=== PATIENT | female | born 1930 | race African-American/Black ===

== ENCOUNTER 2016-11-13 13:59 | Observation (INO) | payer OTHER ==
--- NOTE | 2016-11-13 15:26 | PDOC ---
History of Present Illness - General Chief Complaint: Syncope/Near Syncope Stated Complaint: Syncope/Near Syncope History Source: Patient Exam Limitations: No Limitations - History of Present Illness Initial Comments: 11/13/16 17:41 86 yo F with pmhx of htn, HLD here wtih c/o syncopal event. pt was at grocery store, suddenly had breif loc. fell to ground did have head trauma. loc brief. witness by bystander.no precipitating sp or sob. no f/c no urinary complaints. recently under stress due to problems with her housing. here with family. pt has not had a cardiac work up recently. has had prior syncopal episodes, last time many years ago. 11/13/16 17:43 Past History - Past Medical History Allergies/Adverse Reactions: Allergies Allergy/AdvReac Type Severity Reaction Status Date / Time Penicillins Allergy Verified 11/13/16 14:29 Home Medications: Ambulatory Orders Carvedilol [Coreg] 25 mg PO BID 11/13/16 Clopidogrel Bisulfate [Plavix -] 75 mg PO DAILY 11/13/16 Latanoprost 0.005% Eye Drops [Xalatan 0.005% Eye Drops -] 1 drop OD HS 11/13/16 Simvastatin 40 mg PO HS 11/13/16 Lisinopril [Prinivil] 5 mg PO DAILY #30 tablet 11/15/16 CVA: No (TIA) HTN: Yes Hypercholesterolemia: Yes - Suicide/Smoking/Psychosocial Hx Smoking History: Never smoked Have you smoked in the past 12 months: No Information on smoking cessation initiated: No Hx Alcohol Use: No Drug/Substance Use Hx: No Substance Use Type: None Review of Systems - Review of Systems Constitutional: No: Chills, Diaphoresis, Fever HEENTM: No: Eye Pain Respiratory: No: Cough, Orthopnea Cardiac (ROS): Yes: Syncope. No: Chest Pain, Edema : No: Burning, Dysuria, Discharge Musculoskeletal: No: Back Pain Integumentary: No: Bruising Neurological: No: Headache All Other Systems: Reviewed and Negative *Physical Exam - Vital Signs Last Vital Signs Temp Pulse Resp BP Pulse Ox 97.8 F 75 18 152/62 100 11/13/16 13:59 11/13/16 13:59 11/13/16 13:59 11/13/16 13:59 11/13/16 13:59 - Physical Exam HEENT: positive: Normal ENT Inspection, Normal Voice, Other (head atraumatic) Neck: positive: Trachea midline. negative: Tender Respiratory/Chest: positive: Lungs Clear, Normal Breath Sounds. negative: Chest Tender Cardiovascular: positive: Regular Rhythm, Regular Rate, S1, S2. negative: Edema Gastrointestinal/Abdominal: positive: Normal Bowel Sounds, Flat, Soft. negative : Tender Musculoskeletal: positive: Normal Inspection. negative: CVA Tenderness Extremity: positive: Normal Capillary Refill, Normal Inspection, Normal Range of Motion Integumentary: positive: Normal Color, Dry, Warm Neurologic: positive: mechanic II-XII NML intact, Fully Oriented, Alert, Normal Mood/ Affect, Normal Response, Motor Strength 5/5 Heart Score/ECG Review #1 General ECG Interpretation: Sinus Rhythm, Normal Rate (70), No acute ischemic changes Compared to previous ECG there are: No significant change - ECG Intrepretation Comment:: 11/13/16 17:4 2nd deg block mobitz I, TWI III only. - [place] Normal ED Treatment Course - LABORATORY CBC & Chemistry Diagram: 11/14/16 05:35 11/14/16 05:35 Medical Decision Making - Medical Decision Making 11/13/16 15:23 86 yo F with h/o tia htn afib, here withh c/o syncopal episode while at grocery store. was stressed due to recent issues of being evicted. positive brief loc while walking at store. witnessed by bystanders. no precipitating symptoms. has had similar in the past when stressed. differential : anxiety , dysrthymia, anemia dehydration, infection such as uti, plan labs ekg ua hydrating reassess. 11/13/16 17:[address] Dodson awaiting labs for admission to obs. 11/24/16 12:30 *DC/Admit/Observation/Transfer Diagnosis at time of Disposition: Chronic anticoagulation Syncope Qualifiers: Syncope type: vasovagal syncope Qualified Code(s): R55 - Syncope and collapse Head injury Qualifiers: Encounter type: initial encounter Qualified Code(s): S09.90XA - Unspecified injury of head, initial encounter - Discharge Dispostion Disposition: HOME Condition at time of disposition: Improved - Prescriptions
[2016-11-13 16:59] LABS: BASOPHIL 0.7 % (0-2.0); EOSINOPHIL 0.9 % (0-4.5); MCH 32.6 pg (25.7-33.7); MCHC 32.7 g/dl (32.0-36.0); MEAN CELL VOLUME 99.7 fl (80-96); MEAN PLT VOLUME 9.3 fl (7.5-11.1); NEUTROPHILS 59.5 % (42.8-82.8); PLATELET COUNT 178 K/MM3 (134-434); RDW 13.5 % (11.6-15.6); WHITE BLOOD COUNT 5.8 K/mm3 (4.0-10.0)
[2016-11-13 17:42] LABS: ALBUMIN 3.5 g/dl (3.4-5.0); ANION GAP 6 (8-16); BILIRUBIN,TOTAL 0.5 mg/dL (0.2-1.0); CALCIUM 8.9 mg/dL (8.5-10.1); CO2 33 mmol/L (21-32); CREATININE 0.8 mg/dL (0.55-1.02); GLUCOSE,RANDOM 101 mg/dL (74-106); SGOT/AST 17 U/L (15-37); SGPT/ALT 16 U/L (12-78); TOT PROT 7.1 g/dl (6.4-8.2)
[2016-11-13 17:44] LABS: ALK PHOS 71 U/L (45-117); CPK 66 IU/L (26-192); TROPONIN I < 0.02 ng/ml (0.00-0.05)
--- NOTE | 2016-11-13 19:56 | PN ---
Teaching Attending Note Name of Resident: Smiley Parry ATTENDING PHYSICIAN STATEMENT I saw and evaluated the patient. I reviewed the resident's note and discussed the case with the resident. I agree with the resident's findings and plan as documented. SUBJECTIVE: 86 yo F with pmhx of htn, and hld who presents after falling to the ground at the grocery store. States she has a short period of loc. Fall was witnessed by person nearby. States she was lightheaded prior to event. Denies any chest pain or pressure. Denies any shortness of breath. OBJECTIVE: Physical: VS: Vital Signs Period Temp Pulse Resp BP Sys/Herrmann Pulse Ox Last 24 Hr 97.8 F 75 18 152/62 100 GEN: NAD, Resting in bed, AA0X3, able to speak full sentences HEENT: NCAT, PERRL, Throat without erythema or exudates CARD: II, V RRR S1, S2 RESP: CTAB ABD: BSX4, NTD to palpation EXT: - C/C/E CBCD WBC 5.8 K/mm3 (4.0-10.0) 11/13/16 16:45 RBC 3.79 M/mm3 (3.60-5.2) 11/13/16 16:45 Hgb 12.4 GM/dL (10.7-15.3) 11/13/16 16:45 Hct 37.8 % (32.4-45.2) 11/13/16 16:45 MCV 99.7 fl (80-96) H 11/13/16 16:45 MCHC 32.7 g/dl (32.0-36.0) 11/13/16 16:45 RDW 13.5 % (11.6-15.6) 11/13/16 16:45 Plt Count 178 K/MM3 (134-434) 11/13/16 16:45 MPV 9.3 fl (7.5-11.1) 11/13/16 16:45 CMP Sodium 141 mmol/L (136-145) 11/13/16 16:45 Potassium 4.1 mmol/L (3.5-5.1) 11/13/16 16:45 Chloride 102 mmol/L (98-107) 11/13/16 16:45 Carbon Dioxide 33 mmol/L (21-32) H 11/13/16 16:45 Anion Gap 6 (8-16) L 11/13/16 16:45 BUN 10 mg/dL (7-18) 11/13/16 16:45 Creatinine 0.8 mg/dL (0.55-1.02) 11/13/16 16:45 Creat Clearance w eGFR > 60 (>60) 11/13/16 16:45 Random Glucose 101 mg/dL (74-106) 11/13/16 16:45 Calcium 8.9 mg/dL (8.5-10.1) 11/13/16 16:45 Total Bilirubin 0.5 mg/dL (0.2-1.0) 11/13/16 16:45 AST 17 U/L (15-37) 11/13/16 16:45 ALT 16 U/L (12-78) 11/13/16 16:45 Alkaline Phosphatase 71 U/L (45-117) 11/13/16 16:45 Total Protein 7.1 g/dl (6.4-8.2) 11/13/16 16:45 Albumin 3.5 g/dl (3.4-5.0) 11/13/16 16:45 CARDIAC ENZYMES Creatine Kinase 66 IU/L (26-192) 11/13/16 16:45 Troponin I < 0.02 ng/ml (0.00-0.05) 11/13/16 16:45 CXR:Pending UA- Pending EKG: Mobitz I CT HEAD:No acute intercranial pathology ASSESSMENT AND PLAN: 86 yo f with pmhx of htn, hld, tia, who presents with loss of conciousness at grocery store, being admitted for syncope eval. 1.) Loss of conciousness DDx: Vasovagal/cardiogenic syncope - Orthostatic VS - CXR and UA/Ucx - Echo - Carotid us - CT Head- negative for acute pathology- On Plavix if MS changes repeat CT in 12 hours - Trend Trop/EKG - Chk. Lipid panel 2.) HTN - C/W Home meds 3.) HLD - C/W home meds 4.) Dvt Ppx - Low risk - SCD Place in Obs-Tele
--- NOTE | 2016-11-13 20:12 | PDOC ---
*Physical Exam - Vital Signs Last Vital Signs Temp Pulse Resp BP Pulse Ox 97.8 F 75 18 152/62 100 11/13/16 13:59 11/13/16 13:59 11/13/16 13:59 11/13/16 13:59 11/13/16 13:59 ED Treatment Course - LABORATORY CBC & Chemistry Diagram: 11/13/16 16:45 11/13/16 16:45 - ADDITIONAL ORDERS Additional order review: Laboratory Results 11/13/16 16:45 Sodium 141 Potassium 4.1 Chloride 102 Carbon Dioxide 33 H Anion Gap 6 L BUN 10 Creatinine 0.8 Creat Clearance w eGFR > 60 Random Glucose 101 Calcium 8.9 Total Bilirubin 0.5 AST 17 ALT 16 Alkaline Phosphatase 71 Creatine Kinase 66 Troponin I < 0.02 Total Protein 7.1 Albumin 3.5 11/13/16 16:45 RBC 3.79 MCV 99.7 H MCHC 32.7 RDW 13.5 MPV 9.3 Neutrophils % 59.5 Lymphocytes % 27.8 Monocytes % 11.1 H Eosinophils % 0.9 Basophils % 0.7 *DC/Admit/Observation/Transfer Diagnosis at time of Disposition: [facility] current use of anticoagulant therapy Syncope Qualifiers: Syncope type: unspecified Qualified Code(s): R55 - Syncope and collapse Injury of head Qualifiers: Encounter type: initial encounter Qualified Code(s): S09.90XA - Unspecified injury of head, initial encounter - Discharge Dispostion Admit: Yes
--- NOTE | 2016-11-13 21:34 | HP ---
Admitting History and Physical - Primary Care Physician PCP: Jose Montenegro MD - Admission Chief Complaint: syncope History of Present Illness: 86F history of HTN HLD patient was shopping states she doesn't usually go out in this heat and had an episode where it was witness loss of consciousness. Denies convulsions chest pain shortness of breath aura or neurological symptoms. Patient fell and hit her head and is on plavix. History Source: Patient Limitations to Obtaining History: No Limitations - Past Medical History Additional Past Medical History: HTN HLD - Smoking History Smoking history: Never smoked Have you smoked in the past 12 months: No - Alcohol/Substance Use Hx Alcohol Use: No Home Medications - Allergies Allergies/Adverse Reactions: Allergies Allergy/AdvReac Type Severity Reaction Status Date / Time Penicillins Allergy Verified 11/13/16 14:29 - Home Medications Home Medications: Ambulatory Orders Carvedilol [Coreg] 25 mg PO BID 11/13/16 Clopidogrel Bisulfate [Plavix -] 75 mg PO DAILY 11/13/16 Latanoprost 0.005% Eye Drops [Xalatan 0.005% Eye Drops -] 1 drop OD HS 11/13/16 Simvastatin 40 mg PO HS 11/13/16 Physical Examination Vital Signs: Vital Signs Temperature 97.8 F 11/13/16 13:59 Pulse Rate 75 11/13/16 13:59 Respiratory Rate 18 11/13/16 13:59 Blood Pressure 152/62 11/13/16 13:59 O2 Sat by Pulse Oximetry (%) 100 11/13/16 13:59 Constitutional: Yes: No Distress, Calm Eyes: Yes: Conjunctiva Clear HENT: Yes: Atraumatic Neck: Yes: Supple Cardiovascular: Yes: Pulse Irregular, Murmur (2/9 possible diatolic murmur vs prominent S2) Respiratory: Yes: Regular, CTA Bilaterally Gastrointestinal: Yes: Soft. No: Tenderness Edema: No Assessment/Plan 86F with hisotry of HTN HLD presents to the ED with syncope Problem list Syncope HTN HLD head trauma loss of consciousness EKG abnormalities History of TIA Plan: Telemetry obs repeat EKG trend troponin Echo carotid Duplex Repeat Head CT if needed (mental status changes) restart home meds UA Full H&P to follow Case discussed with attending and admitting technology internship Visit type - Emergency Visit Emergency Visit: Yes ED Registration Date: 11/13/16 Care time: The patient presented to the Emergency Department on the above date and was hospitalized for further evaluation of their emergent condition. - New Patient This patient is new to me today: Yes Date on this admission: 11/13/16 - Critical Care Critical Care patient: No
--- NOTE | 2016-11-13 22:08 | HP ---
CHIEF COMPLAINT: Witnessed fall with LOC PCP: Dr. Montenegro HISTORY OF PRESENT ILLNESS: Pt is an 86 y/o F with PMH HTN, HLD, glaucoma, and remote history of TIA who presented to ED after a witnessed fall with LOC and head trauma. Pt states she was shopping and felt very warm. She suddenly became dizzy and does not remember falling. She woke up shortly thereafter and was not confused. This is consistent with EMS report, which also mentioned no loss of bowel/bladder function and no reports of shaking/seizure activity. The patient denies any changes in vision or aura as well as chest pain, sob, palpitations preceding the event or at this time. Pt currently feels well and has no complaints. Denies headache, blurry vision, chest pain, shortness of breath, palpitations, abdominal pain, bowel/bladder dysfunction, unsteadiness, fever, chills, sick contatcts. ER course was notable for: (1) head CT negative for acute event, abnormal EKG with dropped beat (2) CBC, CMP unremarkable. Tn neg x1. CK of 66 (3) Recent Travel: Denies PAST MEDICAL HISTORY: HTN, HLD, Glaucoma, remote TIA PAST SURGICAL HISTORY: Denies Social History: Smoking:Denies Alcohol: Denies Drugs: Denies Family History: Denies Allergies Penicillins Allergy (Verified 11/13/16 14:29) HOME MEDICATIONS: Home Medications Medication Instructions Recorded Carvedilol [Coreg] 25 mg PO BID 11/13/16 Clopidogrel Bisulfate [Plavix -] 75 mg PO DAILY 11/13/16 Latanoprost 0.005% Eye Drops 1 drop OD HS 11/13/16 [Xalatan 0.005% Eye Drops -] Simvastatin 40 mg PO HS 11/13/16 REVIEW OF SYSTEMS CONSTITUTIONAL: Absent: fever, chills, diaphoresis, generalized weakness, malaise, loss of appetite, weight change HEENT: Absent: rhinorrhea, nasal congestion, throat pain, throat swelling, difficulty swallowing, mouth swelling, ear pain, eye pain, visual changes CARDIOVASCULAR: syncope Absent: chest pain, , palpitations, irregular heart rate, lightheadedness, peripheral edema RESPIRATORY: Absent: cough, shortness of breath, dyspnea with exertion, orthopnea, wheezing, stridor, hemoptysis GASTROINTESTINAL: Absent: abdominal pain, abdominal distension, nausea, vomiting, diarrhea, constipation, melena, hematochezia GENITOURINARY: Absent: dysuria, frequency, urgency, hesitancy, hematuria, flank pain, genital pain MUSCULOSKELETAL: Absent: myalgia, arthralgia, joint swelling, back pain, neck pain SKIN: Absent: rash, itching, pallor HEMATOLOGIC/IMMUNOLOGIC: Absent: easy bleeding, easy bruising, lymphadenopathy, frequent infections ENDOCRINE: Absent: unexplained weight gain, unexplained weight loss, heat intolerance, cold intolerance NEUROLOGIC: Absent: headache, focal weakness or paresthesias, dizziness, unsteady gait, seizure, mental status changes, bladder or bowel incontinence PSYCHIATRIC: Absent: anxiety, depression, suicidal or homicidal ideation, hallucinations. PHYSICAL EXAMINATION GENERAL: Awake, alert, and fully oriented, in no acute distress. HEAD: Normal with no signs of trauma. EYES: Pupils equal, round and reactive to light, extraocular movements intact, sclera anicteric, conjunctiva clear. No lid lag. EARS, NOSE, THROAT: nares patent, oropharynx clear without exudates. equal elevation of palate. no tongue deviation. Moist mucous membranes. NECK: Normal range of motion, supple without lymphadenopathy, JVD, or masses. No carotid bruits LUNGS: Breath sounds equal, clear to auscultation bilaterally. No wheezes, and no crackles. No accessory muscle use. HEART: irregular rhythm, normal S1 and loud S2 questionable murmur, no rub or gallop. ABDOMEN: Soft, nontender, not distended, normoactive bowel sounds, no guarding, no rebound, no masses. No hepatomegaly or splenomegaly. MUSCULOSKELETAL: Normal range of motion at all joints. No bony deformities or tenderness. No CVA tenderness. UPPER EXTREMITIES: 2+ pulses, warm, well-perfused. No cyanosis. No clubbing. No peripheral edema. LOWER EXTREMITIES: 2+ pulses, warm, well-perfused. No calf tenderness. No peripheral edema. NEUROLOGICAL: Cranial nerves II-XII intact. Normal speech. gait not observed. strength 5/5 throughout. Sensation intact throughout. brisk equal reflexes in biceps, brachioradialis, patellar b/l PSYCHIATRIC: Cooperative. Good eye contact. Appropriate mood and affect. SKIN: Warm, dry, normal turgor, no rashes or lesions noted, normal capillary refill. ASSESSMENT/PLAN: Pt is an 86 y/o F with PMH HTN, HLD, glaucoma, and remote history of TIA who presented to ED after a witnessed fall with LOC and head trauma. She is being admitted to Obs for workup of LOC with possible vasovagal/cardiogenic source. #Loss of Consciousness -witnessed with head trauma -etiology unclear: possibly vasovagal or cardiogenic -CT head neg with no AMS -Orthostatics -EKG abnormal with 1st deg block and dropped beat. Will repeat -CXR, UA, UCx -Carotid U/S, Echo -Tn neg x 1. Trend #HTN -will resume home meds once doses confirmed with pharmacy #HLD -will resume home meds once doses confirmed with pharmacy #Glaucoma -will resume home meds once doses confirmed with pharmacy #DVT PPx -SCDs -consider HSQ if admitted to inpt #FEN -not on fluids -lytes wnl -low sodium diet #Dispo -admit to Tele Obs Phan Cosme MD PGY-1 Visit type - Emergency Visit Emergency Visit: Yes ED Registration Date: 11/13/16 Care time: The patient presented to the Emergency Department on the above date and was hospitalized for further evaluation of their emergent condition. - New Patient This patient is new to me today: Yes Date on this admission: 11/14/16 - Critical Care Critical Care patient: No
[2016-11-13] MEDS ORDERED: CLOPIDOGREL BISULFATE 75 MG TABLET (FP) PO ONE (23:27)
[2016-11-13] MEDS ORDERED: CARVEDILOL 25 MG TABLET (FP) PO ONE (23:27)
[2016-11-13] MEDS ORDERED: ATORVASTATIN CA 40 MG TABLET (FP) PO ONE (23:30)
[2016-11-14 06:16] VITALS: BMI 23.9
[2016-11-14 07:13] LABS: BASOPHIL 0.8 % (0-2.0); EOSINOPHIL 1.3 % (0-4.5); MCHC 33.4 g/dl (32.0-36.0); MEAN CELL VOLUME 98.6 fl (80-96); MEAN PLT VOLUME 9.2 fl (7.5-11.1); NEUTROPHILS 51.3 % (42.8-82.8); PLATELET COUNT 168 K/MM3 (134-434); WHITE BLOOD COUNT 6.7 K/mm3 (4.0-10.0)
[2016-11-14 07:26] LABS: INR 1.29 (0.82-1.09); PROTHROMBIN TIME (PATIENT) 14.3 SEC (9.98-11.88)
[2016-11-14 08:40] LABS: ANION GAP 8 (8-16); CALCIUM 9.1 mg/dL (8.5-10.1); CO2 30 mmol/L (21-32); CREATININE 0.7 mg/dL (0.55-1.02); GLUCOSE,RANDOM 93 mg/dL (74-106); MAGNESIUM 2.3 mg/dL (1.8-2.4); PHOSPHOROUS 3.8 mg/dL (2.5-4.9); TROPONIN I < 0.02 ng/ml (0.00-0.05)
[2016-11-14 09:39] LABS: URINE APPEARANCE SLCLOUDY; URINE BILIRUBIN NEGATIVE (NEGATIVE); URINE BLOOD 1+ (NEGATIVE); URINE COLOR YELLOW; URINE GLUCOSE (UA) NEGATIVE (NEGATIVE); URINE KETONE NEGATIVE (NEGATIVE); URINE NITRITE NEGATIVE (NEGATIVE); URINE PROTEIN NEGATIVE (NEGATIVE)
[2016-11-14 09:55] LABS: URINE LEUK ESTERASE 3+ (NEGATIVE)
[2016-11-14 09:58] LABS: URINE BACTERIA RARE /hpf (NONE SEEN); URINE MUCUS RARE; URINE RBC 2 /hpf (0-3); URINE WBC 14 /hpf (3-5)
[2016-11-14] MEDS: CLOPIDOGREL BISULFATE 75 MG TABLET (FP) PO SCH (10:27)
[2016-11-14] MEDS: CARVEDILOL 25 MG TABLET (FP) PO SCH ×2 (10:28→21:12)
--- NOTE | 2016-11-14 11:22 | EKG ---
Test Reason : Blood Pressure : / mmHG Vent. Rate : 065 BPM Atrial Rate : 065 BPM P-R Int : 000 ms QRS Dur : 072 ms QT Int : 398 ms P-R-T Axes : 056 020 047 degrees QTc Int : 413 ms POOR DATA QUALITY, INTERPRETATION MAY BE ADVERSELY AFFECTED SINUS RHYTHM WITH FIRST DEGREE AV BLCK AND 2ND DEGREE MOBITZ 1 AV BLOCK OCCASIONAL SINGLE UNIFOCAL VPBs WHEN COMPARED WITH ECG OF 13-NOV-2016 14:22, PREMATURE VENTRICULAR COMPLEXES ARE NOW PRESENT CLINICAL CORRELATION IS RECOMMENDED AND REPEAT TRACING INDICATEDDDDD Confirmed by DRISS DOMINGUEZ MD ([id number]) on 11/14/2016 11:22:29 AM Referred By: Marek SPENCER Confirmed By:DRISS DOMINGUEZ MD
[2016-11-14 12:59] LABS: CHOLESTEROL 139 mg/dL (50-200)
--- NOTE | 2016-11-14 13:32 | PN ---
Progress Note (short form) - Note Progress Note: Chief Complaint: Events noted, notes reviewed, Witnessed syncope, denies any chest pain or dyspnea History of Present Illness: Seen and examined. Full consult dictated Echocardiography reviewed at the bedside which revealed normal left ventricular size with segmental left ventricular wall motion abnormality and preserved left ventricular ejection fraction, redundancy/prolapse of the anterior mitral valve leaflet with moderate eccentric mitral valve regurgitation, aortic valve sclerosis with mild aortic valve regurgitation,Moderate plus tricuspid valve regurgitation, Bi-atrial dilatation - Current Medication List Current Medications Atorvastatin Calcium (Lipitor -) 40 mg PO [facility] Carvedilol (Coreg -) 25 mg PO BID [facility] Last Admin: 11/14/16 10:28 Dose: 25 mg Clopidogrel Bisulfate (Plavix -) 75 mg PO DAILY [facility] Last Admin: 11/14/16 10:27 Dose: 75 mg Latanoprost (Xalatan 0.005% Eye Drops -) 1 drop OS [facility] Review of Systems - Review of Systems Constitutional: no symptoms reported Respiratory: denies: Cough or Sputum Production Cardiovascular: as noted above Gastrointestinal: denies Nausea, Vomiting, Diarrhea,Constipation or Abdominal Pain Genitourinary: No symptoms reported Musculoskeletal: No symptoms reported Endocrine: No symptoms reported - Objective Vital Signs: Last Vital Signs Temp Pulse Resp BP Pulse Ox 98.0 F 78 18 158/90 98 11/14/16 10:00 11/14/16 10:00 11/14/16 10:00 11/14/16 10:00 11/14/16 10:00 Constitutional: No Distress, Calm Neck: Supple Negative JVD Cardiovascular: S1 S2 Regular Rate and Rhythm, Mid-systolic click, Grade 2/6 Systolic Apical Murmur Respiratory: clear to A&P Gastrointestinal: Soft, Benign Normal Bowel Sounds Ext: No Edema Labs: CBC, BMP 11/14/16 05:35 11/14/16 05:35 Troponin, BNP 11/13/16 11/13/16 11/14/16 16:45 23:50 05:35 Troponin I < 0.02 < 0.02 < 0.02 Hepatic Panel Total Bilirubin 0.5 mg/dL (0.2-1.0) 11/13/16 16:45 AST 17 U/L (15-37) 11/13/16 16:45 ALT 16 U/L (12-78) 11/13/16 16:45 Alkaline Phosphatase 71 U/L (45-117) 11/13/16 16:45 Albumin 3.5 g/dl (3.4-5.0) 11/13/16 16:45 INR, PTT INR 1.29 (0.82-1.09) H 11/14/16 05:35 Assessment/Plan ASSESSMENT: 1. Clinical presentation is consistent with neuro-cardiogenic syncope,vaso- depressor versus cardio-inhibitory 2. 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 Diastolic left ventricular dysfunction with class 0 [place] [employer] classification left ventricular failure 4. 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 Tricuspid valve regurgitation moderate plus in severity with moderate degree of pulmonary hypertension 6. Abnormal EKG blocked APCs with first degree AV block 7. History of cerebrovascular disease/transient ischemic attack 8. Hypertensive cardiovascular disease 9. Hypercholesterolemia PLAN: 1. Continuation of Carvedilol therapy 2. Recommend addition of JOHN inhibitor or angiotensin receptor shar therapy unless it is absolutely contraindicated 3. Continuation of statin therapy 4. Continuation of Plavix therapy 5. Recommend additional evaluation on outpatient basis including extended ambulatory telemetry monitoring, possible loop recorder implantation 6. Recommend myocardial perfusion imaging study on outpatient basis for evaluation of the above-noted segmental left ventricular wall motion abnormality Mayte Martines M.D.
--- NOTE | 2016-11-14 13:46 | EKG ---
Test Reason : Blood Pressure : / mmHG Vent. Rate : 070 BPM Atrial Rate : 075 BPM P-R Int : 000 ms QRS Dur : 066 ms QT Int : 390 ms P-R-T Axes : 034 027 014 degrees QTc Int : 421 ms SINUS RHYTHM WITH 2ND DEGREE A-V BLOCK (MOBITZ I) ABNORMAL ECG WHEN COMPARED WITH ECG OF 21-MAR-2010 09:31, RHYTHM HAS CHANGED ABOVE PREMATURE VENTRICULAR COMPLEXES ARE NO LONGER PRESENT REPEAT EKG IF CLINICALLY INDICATED Confirmed by DRISS DOMINGUEZ MD ([id number]) on 11/14/2016 1:45:32 PM Referred By: Confirmed By:DRISS DOMINGUEZ MD
--- NOTE | 2016-11-14 16:19 | CONS ---
DATE OF CONSULTATION: 11/14/2016 REQUESTING PHYSICIAN: Hospitalist. CHIEF COMPLAINT: Evaluation of a syncopal episode. HISTORY OF PRESENT ILLNESS: An 86-year-old female of -[place] descent with known history of probable coronary artery disease, angina pectoris, diastolic left ventricular dysfunction with class 0 [place] [employer] classification left ventricular failure, heart murmur, cerebrovascular disease in form of transient ischemic attack, hypertensive cardiovascular disease, hypercholesterolemia, who was in her usual state of health, who presented to [facility] Emergency Room with a syncopal episode. Patient stated that she had some onset of weakness, followed by loss of consciousness and questionable head injury. Patient did not report any preceding palpitations. Patient had a similar episode several years ago. At which point, no clear pathology was detected. Patient does not report any recent chest discomfort. Patient reports dyspnea with [id number] physical exertion. Patient denies any orthopnea or paroxysmal nocturnal dyspnea. Patient denies any peripheral edema. Patient denies any palpitations. Patient denies any fatigue or tiredness. Echocardiography was performed. Images were reviewed at the bedside, which reveal segmental left ventricular wall motion abnormality with overall preserved left ventricular systolic function, redundant anterior mitral valve leaflet consistent with mild degree of mitral valve prolapse, with moderate degree of eccentric mitral valve regurgitation, aortic valve leaflet sclerosis with mild aortic valve regurgitation, moderate plus tricuspid valve regurgitation with moderate degree of pulmonary hypertension and biatrial dilatation. PAST MEDICAL HISTORY: Probable coronary artery disease, angina pectoris, diastolic left ventricular dysfunction with class 0 [place] [employer] classification left ventricular failure, heart murmur, cerebrovascular disease, transient ischemic attack, hypertension cardiovascular disease, hypercholesterolemia. SOCIAL HISTORY: Denies smoking. FAMILY HISTORY: Positive for coronary artery disease. ALLERGIES: PENICILLIN. MEDICAL THERAPY AT HOME: Included Coreg 25 mg twice a day, simvastatin 40 mg once a day, clopidogrel 75 mg once a day, Xalatan eye drops. REVIEW OF SYSTEMS: Head and Neck: Denies headache, photophobia, blurring of vision. Respiratory: Denies cough or sputum production. Cardiovascular: As noted above. Gastrointestinal: Denies nausea, vomiting, diarrhea, abdominal discomfort. Genitourinary: No symptoms reported. Musculoskeletal: No symptoms reported. PHYSICAL EXAMINATION: Vital Signs: Blood pressure is 158/90 mmHg, pulse rate of 78 beats per minute, temperature 98.0. Head and Neck: Pupils equal, reactive to light and accommodation. Extraocular muscles are intact. Anicteric sclerae. Negative JVD. No bruit appreciated. Chest: Clear to auscultation and percussion. Cardiovascular: S1, S2. Regular. Mid-systolic click. Grade 2/6 systolic apical murmur. No gallops. Abdomen: Soft, benign. Normoactive bowel sounds. Extremities: Negative edema. Intact distal pulses. No calf tenderness. DIAGNOSTIC DATA: Electrocardiogram reveals sinus rhythm with first-degree AV block and blocked APCs with premature ventricular contraction. Carotid Doppler study revealed mild atherosclerotic plaque bilaterally with no evidence of hemodynamically significant stenosis. CT scan of the head revealed [id number] degree of atrophy, ventricular dilatation, and mild chronic microvascular ischemic changes. CBC revealed white cell count 6.7, hemoglobin 12.2, platelet count 168. INR 1.29. Chemistry revealed sodium 142, potassium 4.3, BUN 8, creatinine 0.7, glucose 93. Troponin less than 0.02. ASSESSMENT: 1. Clinical presentation is consistent with neurocardiogenic syncope, vasodepressor versus cardioinhibitory. 2. Probable coronary artery disease, angina pectoris, stable. 3. Diastolic left ventricular dysfunction with class 0 [place] [employer] classification left ventricular failure. 4. Mitral valve redundancy/prolapse with moderate degree of mitral valve regurgitation, asymptomatic. 5. Tricuspid valve regurgitation, moderate plus in severity with moderate degree of pulmonary hypertension. 6. Abnormal electrocardiogram, first-degree atrioventricular block with blocked atrial premature complexes. 7. History of cerebrovascular disease, transient ischemic attack. 8. Hypertensive cardiovascular disease. 9. Hypercholesterolemia. RECOMMENDATION: 1. Continuation of carvedilol therapy. 2. Continuation of statin therapy. 3. Ideally, JOHN inhibitor or angiotensin receptor shar therapy initiation is recommended unless it is absolutely contraindicated. 4. Continuation of Plavix therapy. 5. Recommend additional evaluation on an outpatient basis including extended ambulatory youth nutritional monitor, possible loop recorder implantation. 6. Recommend myocardial perfusion imaging study on outpatient basis for evaluation of the above-noted segmental left ventricular wall motion abnormality. Thank you for the kind referral. LEONEL SIMPSON M.D. JOSE [id number]
--- NOTE | 2016-11-14 18:12 | PN ---
Progress Note (short form) - Note Progress Note: Subjective: The patient was seen and examined at the bedside, she reports the syncopal episode happened after she found out she was getting "kicked out" of her house and she was very warm because it was hot outside. Discussed ECHO findings and EKG with Dr. Baca who performed bedside ECHO. Awaiting final ECHO report Current Medications Generic Name Dose Route Start Last Admin Trade Name Freq PRN Reason Stop Dose Admin Atorvastatin Calcium 40 mg 11/14/16 22:00 Lipitor - PO HS IGGY Carvedilol 25 mg 11/14/16 10:00 11/14/16 10:28 Coreg - PO 25 mg BID IGGY Administration Clopidogrel Bisulfate 75 mg 11/14/16 10:00 11/14/16 10:27 Plavix - PO 75 mg DAILY IGGY Administration Latanoprost 1 drop 11/14/16 22:00 Xalatan 0.005% Eye Drops - OS HS [facility] Objective: Vital Signs Period Temp Pulse Resp BP Sys/Herrmann Pulse Ox Last 24 Hr 97.7 F-98.6 F 70-85 16-18 124-194/48-90 98-98 Physical Exam: General: NAD, A&Ox3 Lungs: CTA bilaterally Heart: RRR, S1S2, +murmur Abd: Soft, non-tender, non-distended. Normoactive bowel sounds Ext: Warm, well-perfused. 2+ DP/PT bilaterally. No edema Neuro: CN 2-12 intact CBCD WBC 6.7 K/mm3 (4.0-10.0) 11/14/16 05:35 RBC 3.71 M/mm3 (3.60-5.2) 11/14/16 05:35 Hgb 12.2 GM/dL (10.7-15.3) 11/14/16 05:35 Hct 36.6 % (32.4-45.2) 11/14/16 05:35 MCV 98.6 fl (80-96) H 11/14/16 05:35 MCHC 33.4 g/dl (32.0-36.0) 11/14/16 05:35 RDW 13.0 % (11.6-15.6) 11/14/16 05:35 Plt Count 168 K/MM3 (134-434) 11/14/16 05:35 MPV 9.2 fl (7.5-11.1) 11/14/16 05:35 CMP Sodium 142 mmol/L (136-145) 11/14/16 05:35 Potassium 4.3 mmol/L (3.5-5.1) 11/14/16 05:35 Chloride 104 mmol/L (98-107) 11/14/16 05:35 Carbon Dioxide 30 mmol/L (21-32) 11/14/16 05:35 Anion Gap 8 (8-16) 11/14/16 05:35 BUN 8 mg/dL (7-18) 11/14/16 05:35 Creatinine 0.7 mg/dL (0.55-1.02) 11/14/16 05:35 Creat Clearance w eGFR > 60 (>60) 11/13/16 16:45 Random Glucose 93 mg/dL (74-106) 11/14/16 05:35 Calcium 9.1 mg/dL (8.5-10.1) 11/14/16 05:35 Total Bilirubin 0.5 mg/dL (0.2-1.0) 11/13/16 16:45 AST 17 U/L (15-37) 11/13/16 16:45 ALT 16 U/L (12-78) 11/13/16 16:45 Alkaline Phosphatase 71 U/L (45-117) 11/13/16 16:45 Total Protein 7.1 g/dl (6.4-8.2) 11/13/16 16:45 Albumin 3.5 g/dl (3.4-5.0) 11/13/16 16:45 CARDIAC ENZYMES Creatine Kinase 66 IU/L (26-192) 11/13/16 16:45 Troponin I < 0.02 ng/ml (0.00-0.05) 11/14/16 05:35 Assessment: This is an 86 year old female with PMHx of HTN, hyperlipidemia, glaucoma, remote hx of TIA, who presented to the ED with syncopal episode and head trauma. Plan: 1) Syncope - Head CT x2 negative for intracranial hemorrhage or acute process - F/u ECHO - Carotid dopplers with no evidence of high grade stenosis - Trop x3 negative - Bedside ECHO and EKG reviewed with Dr. Martines who recommends the patient be discharged and follow-up as an outpatient - Appreciate cardiology consult 2) HTN Visit type - Emergency Visit Emergency Visit: Yes ED Registration Date: 11/13/16 Care time: The patient presented to the Emergency Department on the above date and was hospitalized for further evaluation of their emergent condition. - New Patient This patient is new to me today: Yes Date on this admission: 11/14/16 - Critical Care Critical Care patient: No - Discharge Referral Referred to [facility] Med P.C.: No
[2016-11-14] MEDS ORDERED: PT OWN MED DRAWER 7, Y5N ONE (20:44)
[2016-11-14] MEDS ORDERED: LATANOPROST 0.005% OPHTH SOLN 2.5ML BOTTLE OS SCH (22:00)
[2016-11-14] MEDS ORDERED: ATORVASTATIN CA 40 MG TABLET (FP) PO SCH (22:00)
[2016-11-15] MEDS: CLOPIDOGREL BISULFATE 75 MG TABLET (FP) PO SCH (09:38)
[2016-11-15] MEDS: CARVEDILOL 25 MG TABLET (FP) PO SCH (09:38)
--- NOTE | 2016-11-15 12:04 | DS ---
Physical Examination Vital Signs: Vital Signs Temperature 97.9 F 11/15/16 06:00 Pulse Rate 75 11/15/16 06:00 Respiratory Rate 20 11/15/16 06:00 Blood Pressure 144/76 11/15/16 06:00 O2 Sat by Pulse Oximetry (%) 98 11/14/16 18:00 Labs: CBC, BMP 11/14/16 05:35 11/14/16 05:35 Discharge Summary Reason For Visit: Syncope/INJURY OF HEAD Current Active Problems Chronic anticoagulation (Acute) Head injury (Acute) Syncope (Acute) Condition: Improved - Instructions Diet, Activity, Other Instructions: Please return to the ED with new, persistent, or worsening symptoms. Please follow-up with providers as indicated. Referrals: Jose Montenegro MD, MD [Primary Care Provider] - 1 Week Mayte Martines MD [Staff Physician] - (Please follow-up with Dr. Martines ( cardiology) within 2-3 days for additonal outpatient ambulatory telemetry monitoring and myocardial perfusion imaging study.) Disposition: HOME - Home Medications Comprehensive Discharge Medication List: Ambulatory Orders Carvedilol [Coreg] 25 mg PO BID 11/13/16 Clopidogrel Bisulfate [Plavix -] 75 mg PO DAILY 11/13/16 Latanoprost 0.005% Eye Drops [Xalatan 0.005% Eye Drops -] 1 drop OD 11/13/16 Simvastatin 40 mg PO 11/13/16
[2016-11-15] MEDS ORDERED: LISINOPRIL 5 MG TABLET (FP) PO SCH (12:23)
--- NOTE | 2016-11-15 13:19 | PN ---
Progress Note, Physician History of Present Illness: No further near or true syncope, denies chest pain or dyspnea. - Current Medication List Current Medications: Active Medications Atorvastatin Calcium (Lipitor -) 40 mg PO HS [facility] Last Admin: 11/14/16 21:12 Dose: 40 mg Carvedilol (Coreg -) 25 mg PO BID [facility] Last Admin: 11/15/16 09:38 Dose: 25 mg Clopidogrel Bisulfate (Plavix -) 75 mg PO DAILY [facility] Last Admin: 11/15/16 09:38 Dose: 75 mg Latanoprost (Xalatan 0.005% Eye Drops -) 1 drop OS HS [facility] Last Admin: 11/14/16 21:12 Dose: 1 drop Lisinopril (Prinivil) 5 mg PO DAILY [facility] - Objective Vital Signs: Vital Signs Temperature 97.9 F 11/15/16 06:00 Pulse Rate 75 11/15/16 06:00 Respiratory Rate 20 11/15/16 06:00 Blood Pressure 144/76 11/15/16 06:00 O2 Sat by Pulse Oximetry (%) 98 11/14/16 18:00 Constitutional: Yes: No Distress, Calm, Thin Neck: Yes: Supple Cardiovascular: Yes: Regular Rate and Rhythm, Murmur (2/6 SM) Respiratory: Yes: Regular, CTA Bilaterally Gastrointestinal: Yes: Normal Bowel Sounds, Soft Edema: No Labs: CBC, BMP 11/14/16 05:35 11/14/16 05:35 INR, PTT INR 1.29 (0.82-1.09) H 11/14/16 05:35 - ....Imaging EKG: Report Reviewed (Tele: ja JAMES) Problem List - Problems (1) Syncope Code(s): R55 - SYNCOPE AND COLLAPSE Qualifiers: Syncope type: vasovagal syncope Qualified Code(s): R55 - Syncope and collapse (2) Hypertensive cardiomyopathy Code(s): I11.9 - HYPERTENSIVE HEART DISEASE WITHOUT HEART FAILURE I43 - CARDIOMYOPATHY IN DISEASES CLASSIFIED ELSEWHERE Qualifiers: Heart failure presence: without heart failure Qualified Code(s): I11.9 - Hypertensive heart disease without heart failure; I43 - Cardiomyopathy in diseases classified elsewhere (3) Premature ventricular contraction Code(s): I49.3 - VENTRICULAR PREMATURE DEPOLARIZATION (4) Hyperlipidemia Code(s): E78.5 - HYPERLIPIDEMIA, UNSPECIFIED Qualifiers: Hyperlipidemia type: pure hypercholesterolemia Qualified Code(s): E78.00 - Pure hypercholesterolemia, unspecified; E78.0 - Pure hypercholesterolemia (5) Diastolic dysfunction without heart failure Code(s): I51.9 - HEART DISEASE, UNSPECIFIED Assessment/Plan 11/14/2016 Echocardiography reviewed at the bedside which revealed normal left ventricular size with segmental left ventricular wall motion abnormality and preserved left ventricular ejection fraction, redundancy/prolapse of the anterior mitral valve leaflet with moderate eccentric mitral valve regurgitation , aortic valve sclerosis with mild aortic valve regurgitation,Moderate plus tricuspid valve regurgitation, Bi-atrial dilatation 1. Clinical presentation is consistent with neurocardiogenic syncope, vasodepressor versus cardioinhibitory 2. 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 Diastolic left ventricular dysfunction with class 0 [place] [employer] classification left ventricular failure 4. 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 Tricuspid valve regurgitation moderate plus in severity with moderate degree of pulmonary hypertension 6. Abnormal EKG blocked APCs with first degree AV block 7. History of cerebrovascular disease/transient ischemic attack 8. Hypertensive cardiovascular disease 9. Hypercholesterolemia PLAN: 1. Continuation of Carvedilol 25 bid 2. Continue lisinopril 5 qd 3. Continuation of Lipitor 40 qhs 4. Continuation of Plavix 75 qd 5. Recommend additional evaluation on outpatient basis including extended ambulatory telemetry monitoring, Cardionet vs loop recorder implantation as outpatient 6. Recommend myocardial perfusion imaging study on outpatient basis for evaluation of the above-noted segmental left ventricular wall motion abnormality 7. Plan of care d/w patient and daughter
[2016-11-15 15:46] VITALS: BP 141/65; PULSE 71; TEMP 97.7
[2016-11-16] MEDS ORDERED: LISINOPRIL 5 MG TABLET (FP) PO SCH (10:00)
== END 2016-11-15 13:42 | disposition home or self-care (01) ==
LOC: JER 13:59 → JERBED 20:12 → J4S 23:10
PROVIDERS: ADMIT Internal Medicine; ATTEND Registered Nurse
DX: R55 Syncope and collapse (principal); I11.9 Hypertensive heart disease without heart failure; I43 Cardiomyopathy in diseases classified elsewhere; I49.3 Ventricular premature depolarization; E78.5 Hyperlipidemia, unspecified; S09.90XA Unspecified injury of head, initial encounter; R94.31 Abnormal electrocardiogram [ECG] [EKG]; H40.9 Unspecified glaucoma; Z86.73 Personal history of transient ischemic attack (TIA), and cerebral infarction without residual deficits; Z79.01 Long term (current) use of anticoagulants; Z88.0 Allergy status to penicillin; W18.39XA Other fall on same level, initial encounter; Y93.89 Activity, other specified; Y92.512 Supermarket, store or market as the place of occurrence of the external cause
CPT/HCPCS: 36415; 70450-TC; 71010-TC; 80048; 80053; 80061; 81003; 81015; 83721; 83735; 84100; 84484; 85025; 85610; 87086; 93005; 93010; 93306-TC; 93880-TC; 99282-25; G0378